=== PATIENT | male | born 2000 | race Caucasian/White ===

== ENCOUNTER 2025-09-06 20:40 | Emergency (ER) | payer BC, OTHER ==
[2025-09-06 22:19] LABS: #Basophils 0.1 thou/uL (0.0-0.2); #Eosinophils 0.0 thou/uL (0.0-0.7); #Lymphocytes 0.3 thou/uL (1.20-3.40); #Monocytes 0.6 thou/uL (0.11-0.59); #Neutrophils 2.8 thou/uL (1.40-6.50); %Basophils 1.6 % (0.0-1.0); %Eosinophils 0.3 % (0.0-10.0); %Lymphocytes 8.9 % (21.0-51.0); %Monocytes 14.7 % (0.0-10.0); %Neutrophils 74.4 % (42.0-75.0); Hematocrit 30.7 % (42.0-52.0); Hemoglobin 11.3 g/dL (14.0-18.0); Mean Corpuscular Hemoglobin 29.6 pg (27.0-31.0); Mean Corpuscular Volume 80.5 fl (78.0-98.0); Platelet Count 36 10x3/uL (130-400); Red Blood Cell (RBC) Count 3.81 mill/uL (4.70-6.10); White Blood Cell (WBC) Count 3.8 10x3/uL (4.8-10.8)
[2025-09-06 22:31] LABS: ALT (SGPT) 35 U/L (Less than 45); AST (SGOT) 52 U/L (11-34); Albumin 3.5 g/dL (3.1-4.5); Alkaline Phosphatase 72 U/L (40-110); Anion Gap 14 mmol/L (10-20); BUN (Urea Nitrogen) 11 mg/dL (8.9-20.6); Bilirubin, Total 2.2 mg/dL (0.3-1.2); Calc. Creatinine Clearance 0 mL/min (70-130); Calcium 8.2 mg/dL (7.8-10.44); Carbon Dioxide 20 mmol/L (22-29); Chloride 107 mmol/L (98-107); Globulin 3.3 g/dL (2.4-3.5); Glucose 109 mg/dL (70-105); Potassium 3.7 mmol/L (3.5-5.1); Sodium 137 mmol/L (136-145)
[2025-09-06] MEDS ORDERED: Metoclopramide HCl 10 MG (2 mL) VIAL ONE (22:33)
[2025-09-06 23:42] LABS: Glucose, Urine (Dipstick) 100 mg/dL (Negative); Leukocyte Negative (Negative); Protein, Urine (Dipstick) 30 mg/dL (Neg-Trace); Specific Gravity, Urine 1.015 (1.005-1.030)
[2025-09-06 23:54] LABS: Bacteria/HPF 1+ HPF (None Seen); CAUTI Indications for Culture Immunosuppressed; Mucous/LPF 2+ LPF (<2+); RBC/HPF 0-3 HPF (0-3); WBC/HPF 0-3 HPF (0-3)
[2025-09-06 23:56] LABS: Urine Culture Reflex Yes Yes
== END 2025-09-07 01:44 | disposition short-term general hospital (02) ==
LOC: BURERS 20:40
DX: R50.9 Fever, unspecified (principal); Z79.620 Long term (current) use of immunosuppressive biologic
CPT/HCPCS: 36415; 71045; 80053; 81001; 85025; 87040; 87086; 87428; 96365; 96375; J0692; J2765